=== PATIENT | female | born 1990 | race Caucasian/White ===

== ENCOUNTER 2020-05-17 11:15 | Emergency (ER) | payer OTHER ==
[~2020-05-17] VITALS: Ht 157.5 cm; Wt 56.7 kg
[~2020-05-17 11:15] MED LIST: BACTRIM DS TAB1 EACH PO; BENTYL 10 MG CA10 M1 PO; BIRTH CONTROL; CIPROFLOXACIN500 M1 PO; FLEXERIL PO; HYDROCODON-ACE1 EAC1; HYOSCYAMINE0.375 M2 PO; IBUPROFEN 800800 M1 PO; IBUPROFEN 800800 MG PO; KEFLEX500 MG; LORTAB 5 MG/5001 TA1 PO; MEDROLDOSEPACK PO; MOBIC7.5 M1 PO; NOHOMEMEDICATIONS; NORCO 5-325 TA1 EACH PO; NORCO 7.5-3251 EACH PO; NORFLEX100 MG PO; ORTHO EVRA PAT1 EACH; OXYCONTIN10 M1 PO; PERCOCET 5-3251 EACH PO; PREDNISONE 5 MG5 M1 PO; ROBAXIN 750 MG750 MG PO; TRAMADOL; ULTRAM 50MG TAB50 MG PO; VALIUM5 MG PO; VICODIN; XANAX 0.5 MG0.5 MG PO; XANAX XR1 MG; XANAX1 MG PO; ZOFRAN4 MG PO
[2020-05-17 12:44] VITALS: BP 145/70
== END 2020-05-17 12:45 | disposition home or self-care (01) ==
LOC: M.ERS 11:15
DX: S06.0X0A Concussion without loss of consciousness, initial encounter (principal); R09.81 Nasal congestion; F17.210 Nicotine dependence, cigarettes, uncomplicated; Z88.1 Allergy status to other antibiotic agents; Z88.0 Allergy status to penicillin; Z88.8 Allergy status to other drugs, medicaments and biological substances; W01.0XXA Fall on same level from slipping, tripping and stumbling without subsequent striking against object, initial encounter; Y93.89 Activity, other specified; Y92.89 Other specified places as the place of occurrence of the external cause; Y99.8 Other external cause status